=== PATIENT | female | born 1945 | race Caucasian/White ===

== ENCOUNTER 2022-01-27 14:48 | Emergency (ER) | payer OTHER ==
--- OUTSIDE RECORDS SUMMARY | 2022-01-27 14:54 | XMS REPORT | Continuity of Care Document ---
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 23:59:59 02 2020-07-25 2020-07-27 Outside nullFlavo MNA [id number] Memoria 13:18:30 04:59:59 Medical r Neurology 01 l Records Marta Escamilla 2020-07-25 2020-07-26 Outpatient MHMISCHER MHMISCHER [id number] 08:18:30 23:59:59 2020-07-20 2020-07-22 Outside nullFlavo MNA [id number] Memoria 14:14:15 04:59:59 Medical r Neurology 00 l Records Marta Escamilla 2020-07-20 2020-07-21 Outpatient MHMISCHER MHMISCHER [id number] 09:14:15 23:59:59 00 2020-07-17 2020-07-18 Outpatient nullFlavo MNA [id number] Memoria 15:30:00 04:59:59 r Neurology 08 l Marta Escamilla 2020-07-17 2020-07-17 Outpatient JERE DupreeMISCHER MHMISCHER [id number] 10:30:00 23:59:59 Salazar 08 Nba 2020-07-17 2020-07-17 Outpatient MHIE MHIE [id number] Memoria 10:30:00 10:30:00 08 alicia [place] 2020-02-17 2020-02-18 Outpatient nullFlavo MNA [id number] Memoria 18:00:00 04:59:59 r Neurology 06 l [place] 2020-02-17 2020-02-17 Outpatient JERE DupreeMISCHER MHMISCHER [id number] 13:00:00 23:59:59 Salazar 06 Nba 2020-02-17 2020-02-17 Outpatient MHIE MHIE [id number] Memoria 13:00:00 13:00:00 06 alicia [place] 2019-10-20 2019-10-21 Outpatient nullFlavo MNA [id number] Memoria 15:15:00 04:59:59 r Neurology 05 alicia [place] 2019-10-20 2019-10-20 Outpatient JERE DupreeMISCHER MHMISCHER [id number] 10:15:00 23:59:59 Salazar 05 Nba 2019-10-20 2019-10-20 Outpatient MHIE MHIE [id number] Memoria 10:15:00 10:15:00 05 alicia Escamilla 2019-06-30 2019-07-01 Outpatient nullFlavo MNA [id number] Memoria 15:00:00 05:59:59 r Neurology 04 alicia [place] [facility] [place] 2019-06-30 2019-06-30 Outpatient Leia MHMISCHER MHMISCHER [id number] 09:00:00 23:59:59 Salazar 04 Nba 2019-06-30 2019-06-30 Outpatient MHIE MHIE [id number] Memoria 09:00:00 09:00:00 04 alicia [place] 2019-04-14 2019-04-14 Outpatient MHIE MHIE [id number] Memoria 11:00:00 11:00:00 02 alicia [place] 2019-03-31 2019-04-01 Outpatient nullFlavo MNA [id number] Memoria 14:30:00 05:59:59 r Neurology 03 alicia [place] 2019-03-31 2019-03-31 Outpatient Leia MHMISCHER MHMISCHER [id number] 08:30:00 23:59:59 Salazar 03 Nba 2019-03-31 2019-03-31 Outpatient MHIE MHIE [id number] Memoria 08:30:00 08:30:00 03 alicia [place] 2019-03-30 2019-03-30 Ambulatory nullFlavo MNA [id number] Memoria 19:00:00 19:00:00 Pre-Reg r Neurology 02 alicia [place] 2019-03-30 2019-03-30 Outpatient Leia, MHMISCHER MHMISCHER [id number] 13:00:00 13:00:00 Salazar 02 Nba 2018-12-30 2018-12-31 Outpatient nullFlavo MNA [id number] Memoria 15:00:00 04:59:59 r Neurology 01 alicia [place] 2018-12-30 2018-12-30 Outpatient Leia MHMISCHER MHMISCHER [id number] 10:00:00 23:59:59 Salazar 01 Nba 2018-12-30 2018-12-30 Outpatient MHIE MHIE [id number] Memoria 10:00:00 10:00:00 01 alicia Escamilla 2018-11-16 2018-11-17 Outpatient nullFlavo MNA [id number] Memoria 20:45:00 04:59:59 r Neurology 00 l Marta Escamilla 2018-11-16 2018-11-16 Outpatient MARK Dupree [id number] 15:45:00 23:59:59 Salazar 00 Nba 2018-11-16 2018-11-16 Outpatient CANDIDA TIRADO [id number] Memoria 15:45:00 15:45:00 00 l Andi Results Test Description Test Time Test Comments Results Result Sourc e Comments [facility], 2019-02-06 Reason for FINAL REPORT PATIENT OMAIRA MANN, 10:27:00 exam:->precordi ID: [id number] SPECT al pain PROCEDURE:Rest/Stres s MYOCARDIAL PERFUSION SCAN with Lexiscan CPT CODE:59693 CLINICAL INDICATION: chest pain PROTOCOL: 10.3 mCi of Tc-99m sestamibi was injected intravenously at rest and 30 mCi of Tc-99m sestamibi was injected after administration of Lexiscan. Other stress and monitoring data are reported separately. Tomographic (SPECT) images were obtained after resting injection. Gated SPECT images were obtained after stress injection. FINDINGS: Images obtained after resting and stress injections of tracer show physiological tracer distribution in the LV myocardium. Gated images obtained at rest after stress injection show normal LV wall motion and thickening. QGS LVEF is 58 %. IMPRESSION: 1. Normal Lexiscan Cardiolite stress test. 2. Normal wall motion with LVEF of 58 %. Signed: Neida Long Verified Date/Time: 02/06/2019 10:27:56 Reading Location: [facility] Cardiology Reading Room -GLUCOSE METER 2019-02-06 05:55:00 Test Item Value Reference Range Interpretation Comme nts POC-GLUCOSE METER (BEAKER) (test 173 mg/dL 70-110 H TESTED AT [facility] [address] code = 1538) [place] [address] POCT-GLUCOSE [id number] 20:27:00 Test Item Value Reference Range Interpretation Comments POC-GLUCOSE METER 234 mg/dL 70-110 H TESTED AT [facility] [address] ([facility]) (test code [facility] = 1538) [place] [address] POCT-GLUCOSE [id number] 17:11:00 Test Item Value Reference Range Interpretation Comments POC-GLUCOSE METER 212 mg/dL 70-110 H TESTED AT [facility] [address] ([facility]) (test code [facility] = 1538) [place] [address] TSH/FREE T4 IF [id number] 13:03:00 Test Item Value Reference Range Interpretation Comments THYROID STIMULATING HORMONE 1.12 uIU/mL 0.35-5.50 ([facility]) (test code = 772) B-TYPE NATRIURETIC FACTOR (BNP)2019-02-05 12:55:00 Test Item Value Reference Range Interpretation Comments B-TYPE NATRIURETIC PEPTIDE ([facility]) 13 pg/mL 0-100 (test code = 700) TROPONIN [id number] 12:49:00 Test Item Value Reference Range Interpretation Comments TROPONIN I ([facility]) (test code = 0.01 ng/mL 0.00-0.15 397) Troponin I (TnI) levels must be interpreted in the context of the presenting symptoms and the clinical findings. Elevated TnI levels indicate myocardial damage, but are not specific for ischemic heart disease. Elevated TnI levels are seen in patients with other cardiac conditions (including myocarditis and congestive heart failure), and slight TnI elevations occur in patients with other conditions, including sepsis, renal failure, acidosis, acute neurological disease, and persistent tachyarrhythmia.POCT-GLUCOSE [id number] 12:28:00 Test Item Value Reference Range Interpretation Comments POC-GLUCOSE METER 104 mg/dL 70-110 TESTED AT [facility] [address] [address] ([facility]) (test code [facility] = 1538) [place] [address] CT, BRAIN, WITHOUT [id number] 07:13:00Reason for exam:- >HYPERTENSIONWhat is the patient's sedation requirement?->No Sedation Addendum BeginsREPORT STATUS:A Addendum is made to correct the dictation error in impression point '1' which should read as follows:1. NO large territory infarction, hemorrhage, ormass. Signed: Merissa Grey Verified Date/Time: 02/05/2019 07:13:31 Addendum EndsFINAL REPORT EXAM: CT, BRAIN, WITHOUT CONTRAST CLINICAL INDICATION: Hypertension headache.TECHNIQUE: Helical CT images from skull base to vertex without IV contrast. This exam was performed according to our departmental dose- optimization program, which includes automated exposure control, adjustment of the mA and/or kV according to patient size and/or use of iterative reconstruction technique. COMPARISON: None. FINDINGS: Parenchyma: No large territory infarction. There is an age-indeterminate left caudate nucleus lacunar infarction, age indeterminate infarction of the left sharp radiata, and age- indeterminate hypoattenuation of the left brachium pontis. Remote infarction of the right hemipons. No hemorrhage. No mass or mass effect. Patchy areas of hypoattenuation are present in the cerebral white matter that are nonspecific but compatible with mild chronic microvascular ischemic changes. Extra-axial Collection: None Ventricular System: No hydrocephalus Dural Venous Sinuses: Normal Osseous Structures: Normal Included Orbits: Normal Paranasal Sinuses: Predominantly clear Tympanomastoid Cavities: Normal Other: Atherosclerotic intracranial calcifications are present. IMPRESSION: 1. Large territory infarction, hemorrhage, or mass. 2. Age-indeterminate left caudate and left sharp radiata lacunar infarctions. If there is persistent clinical concern for intracranial pathology, MR examination is recommended for further characterization. 3. Remote right hemipons infarction and mild chronic white matter ischemic changes. Signed: Merissa Grey [facility] Verified Date/Time: 02/05/2019 06:54:30 TROPONIN [id number] 06:32:00 Test Item Value Reference Range Interpretation Comments TROPONIN I (BEAKER) (test code = 0.02 ng/mL 0.00-0.15 397) Troponin I (TnI) levels must be interpreted in the context of the presenting symptoms and the clinical findings. Elevated TnI levels indicate myocardial damage, but are not specific for ischemic heart disease. Elevated TnI levels are seen in patients with other cardiac conditions (including myocarditis and congestive heart failure), and slight TnI elevations occur in patients with other conditions, including sepsis, renal failure, acidosis, acute neurological disease, and persistent tachyarrhythmia.BASIC METABOLIC [id number] 06:27:00 Test Item Value Reference Range Interpretation Comments SODIUM (BEAKER) (test 141 meq/L 135-148 code = 381) POTASSIUM (BEAKER) 3.7 meq/L 3.5-5.5 (test code = 379) CHLORIDE (BEAKER) 105 meq/L 98-106 (test code = 382) CO2 (BEAKER) (test 25 meq/L 20-31 code = 355) BLOOD UREA NITROGEN 18 mg/dL 10-26 (BEAKER) (test code = 354) CREATININE (BEAKER) 0.78 mg/dL 0.50-1.20 (test code = 358) GLUCOSE RANDOM 196 mg/dL 70-110 H (BEAKER) (test code = 652) CALCIUM (BEAKER) 9.7 mg/dL 8.5-10.5 (test code = 697) EGFR (BEAKER) (test INSUFFIC IENT CLINICAL code = 1092) DATA TO CALCULA TE ESTIMATED GFR. RAD, CHEST, 1 VIEW, NON [id number] 06:25:00Reason for exam:->cpShould this be performed at the bedside?->YesFINAL REPORT INDICATION: cp COMPARISON: None TECHNIQUE: Single frontal view of the chest. FINDINGS: Lungs and pleura: Clear lungs. No effusion.Heart and mediastinum: Normal heart size. Mild aortic arch calcifications.Osseous structures: No acute abnormality.Other: None. IMPRESSION: No acute intrathoracic abnormality. Signed: Merissa Grey MDReport Verified Date/Time: 02/05/2019 06:25:30 -[id number] 06:19:00 Test Item Value Reference Range Interpretation Comments D-DIMER QUANTITATIVE (BEAKER) 0.26 MG/L FEU <0.50 (test code = 671) Intended Use: The D-Dimer Assay can be used to aid in the diagnosis of Deep Vein Thrombosis (DVT) and Pulmonary Embolism Disease (PED).In patients with low pre- test probability, various studies concerning STA Liatest D-dimer test have reported that with a cutoff value of 0.50 MG/L FEU, the Negative Predictive Value (NPV) regarding the exclusion of thrombosis is within 95-100% range.CBC W/PLT COUNT & AUTO [id number] 06:08:00 Test Item Value Reference Range Interpretation Comments WHITE BLOOD CELL COUNT 10.8 K/ L 4.0-10.0 H (BEAKER) (test code = 775) RED BLOOD CELL COUNT 4.76 M/ L 4.00-5.00 (BEAKER) (test code = 761) HEMOGLOBIN (BEAKER) 15.6 GM/DL 12.0-15.5 H (test code = 410) HEMATOCRIT (BEAKER) 45.0 % 36.0-46.0 (test code = 411) MEAN CORPUSCULAR VOLUME 94.5 fL 82.0-99.0 (BEAKER) (test code = 753) MEAN CORPUSCULAR 32.8 pg 27.0-33.0 HEMOGLOBIN (BEAKER) (test code = 751) MEAN CORPUSCULAR 34.7 GM/DL 32.0-36.0 HEMOGLOBIN CONC (BEAKER) (test code = 752) RED CELL DISTRIBUTION 12.9 % 12.0-15.0 WIDTH (BEAKER) (test code = 412) PLATELET COUNT (BEAKER) 214 K/CU MM 150-430 (test code = 756) MEAN PLATELET VOLUME 9.5 fL 6.0-11.5 MPV-Kurtis roximately (BEAKER) (test code = 20% po sitive bias 754) due to method change. NUCLEATED RED BLOOD 0 /100 WBC 0-0 CELLS (BEAKER) (test code = 413) NEUTROPHILS RELATIVE 73 % PERCENT (BEAKER) (test code = 429) LYMPHOCYTES RELATIVE 15 % PERCENT (BEAKER) (test code = 430) MONOCYTES RELATIVE 10 % PERCENT (BEAKER) (test code = 431) EOSINOPHILS RELATIVE 2 % PERCENT (BEAKER) (test code = 432) BASOPHILS RELATIVE 0 % PERCENT (BEAKER) (test code = 437) NEUTROPHILS ABSOLUTE 7.81 K/ L 1.80-8.00 COUNT (BEAKER) (test code = 670) LYMPHOCYTES ABSOLUTE 1.58 K/ L 1.48-4.50 COUNT (BEAKER) (test code = 414) MONOCYTES ABSOLUTE 1.02 K/ L 0.00-1.30 COUNT (BEAKER) (test code = 415) EOSINOPHILS ABSOLUTE 0.26 K/ L 0.00-0.50 COUNT (BEAKER) (test code = 416) BASOPHILS ABSOLUTE 0.04 K/ L 0.00-0.20 COUNT (BEAKER) (test code = 417) IMMATURE 0 % 0-0 GRANULOCYTES-RELATIVE PERCENT (CHRISAKER) (test code = 2801)
[2022-01-27 15:32] LABS: Absolute Lymphocytes (CBC) 1.4 K/uL (0.7-4.9); Hematocrit 43.4 % (36.0-45.0); MCV 96.3 fL (80-100); MPV 7.5 fL (7.6-11.3); RBC Red Blood Cell Count 4.51 M/uL (3.86-4.86)
[2022-01-27 15:52] LABS: Albumin 3.6 g/dL (3.4-5.0); Bilirubin Total 0.3 mg/dL (0.2-1.0); Potassium 3.5 mmol/L (3.5-5.1); Protein, Total 7.1 g/dL (6.4-8.2)
--- NOTE | 2022-01-27 15:57 | RAD REPORT ---
EXAM DESCRIPTION: CT - Head Brain Wo Cont - 01/27/2022 3:46 pm CLINICAL HISTORY: Headache, new or worsening COMPARISON: Head Brain Wo Cont dated 01/25/2022No comparisons TECHNIQUE: Axial 5 mm thick images of the head were obtained without IV contrast. All CT scans are performed using dose optimization technique as appropriate and may include automated exposure control or mA/KV adjustment according to patient size. FINDINGS: No intracranial hemorrhage, mass, edema or shift of mid-line structures. No acute infarcti on changes seen. No cortical edema or sulcal effacement. Mild atrophy changes are present in the cere bral hemispheres with more moderate cerebellum atrophy. Old infarction change seen in the right-sided jaleel. Chronic ischemic changes are present in the cerebral white matter and extending into the bilat eral basal ganglia. Ventricles are in proportion to volume loss. Dense arterial tree calcifications a re present. Mastoid air cells and visualized portions of the paranasal sinuses are clear. No acute bony findings. IMPRESSION: Negative non-contrast CT head examination for acute intracranial finding.
[2022-01-27] MEDS ORDERED: NA CHLORIDE 0.9% 1,000 ML ONE (15:59)
[2022-01-27] MEDS ORDERED: ACETAMINOPHEN 500 MG TAB ONE (15:59)
[2022-01-27] MEDS ORDERED: METOCLOPRAMIDE 10 MG/2mL INJ ONE (15:59)
--- NOTE | 2022-01-27 16:04 | EDPHYS ---
Physician Documentation [facility] Name: Ruthann Vega Age: 76 yrs Sex: Female : 1945 Arrival Date: 01/27/2022 Time: 14:50 Bed 2 Private MD: ED Physician Manish Wade HPI: 01/27 15:10 This 76 yrs old Female presents to ER via EMS with complaints of headache since 8-9a, jr11 worsening . 15:10 The patient complains of pain to the left side of head. The patient describes the jr11 headache as aching, pounding, throbbing, acute onset BECK, change in quality, h/o stroke. Onset: The symptoms/episode began/occurred 6 hrs. Associated signs and symptoms: Pertinent negatives: altered mental status, malaise, nausea, rash. Severity of symptoms: At its worst the pain was moderate, in the emergency department the pain is actually worse. No worsening L sided weakness. Historical: - Allergies: 14:52 Wheat/glutens; ll1 14:52 Codeine; ll1 - PMHx: 14:52 Transient cerebral ischemia; Diabetes mellitus; Hypertensive disorder; CVA-L side ll1 weakness; Hypercholesterolemia; - PSHx: 14:52 hysterectomy; ll1 - Immunization history:: Client reports receiving the 2nd dose of the Covid vaccine. - Social history:: Smoking status: Patient denies any tobacco usage or history of. ROS: 15:10 All other systems are negative. jr11 Exam: 15:10 Constitutional: This is a well developed, well nourished patient who is awake, alert, jr11 and in no acute distress. Head/Face: Normocephalic, atraumatic. Eyes: Extra-ocular motions intact. Lids and lashes normal. Conjunctiva and sclera are non-icteric and not injected. Cornea within normal limits. Periorbital areas with no swelling, redness, or edema. ENT: Nares patent. No nasal discharge, no septal abnormalities noted. Oropharynx with no redness, swelling, or masses, exudates, or evidence of obstruction, uvula midline. Mucous membranes moist. Neck: Trachea midline, no thyromegaly or masses palpated, and no cervical lymphadenopathy. Supple, full range of motion without nuchal rigidity, or vertebral point tenderness. No Meningismus. Chest/axilla: Normal chest wall appearance and motion. Nontender with no deformity. No lesions are appreciated. Cardiovascular: Regular rate and rhythm with a normal S1 and S2. No gallops, murmurs, or rubs. Normal PMI, no JVD. No pulse deficits. Respiratory: Lungs have equal breath sounds bilaterally, clear to auscultation and percussion. No rales, rhonchi or wheezes noted. No increased work of breathing, no retractions or nasal flaring. Abdomen/GI: Soft, non-tender, with normal bowel sounds. No distension or tympany. No guarding or rebound. No evidence of tenderness throughout. Back: No spinal tenderness. No costovertebral tenderness. Full range of motion. Skin: Warm, dry with normal turgor. Normal color with no rashes, no lesions, and no evidence of cellulitis. MS/ Extremity: Pulses equal, no cyanosis. Neurovascular intact. Full, normal range of motion. Neuro: Awake and alert, GCS 15, oriented to person, place, time, and situation. No gross motor or sensory deficits except L sided weakness LUE and LLE, chronic Vital Signs: 14:50 Weight 85.73 kg; Height 5 ft. 3 in. (160.02 cm); Pain 7/10; ll1 14:55 BP 159 / 76; Pulse 88; Resp 17; Temp 98.5; Pulse Ox 98% on R/A; ll1 16:00 BP 129 / 67; Pulse 91; Resp 16; Pulse Ox 96% ; Pain 2/10; db 16:37 Temp 97.9(TE); ph 14:50 Body Mass Index 33.48 (85.73 kg, 160.02 cm) ll1 Fiordaliza Coma Score: 15:10 Eye Response: spontaneous(4). Verbal Response: oriented(5). Motor Response: obeys jr11 commands(6). Total: 15. MDM: 15:07 Patient medically screened. jr11 15:10 Differential diagnosis: intracerebral hemorrhage, migraine, tension headache. Data jr11 reviewed: vital signs, nurses notes. ED course: Patient is a 76-year-old history of stroke, patient states she is never had headaches like this before, headache less than 6 hours, will rule out subarachnoid bleed with a CT. In the meantime treat symptomatically. Headache negative, will continue treated symptomatically. Denies any worsening weakness. 16:03 ED course: Pt feeling better, comfortable going home, ER warnings given . jr11 01/27 15:07 Order name: CBC with Diff jr11 01/27 15:07 Order name: CMP jr11 01/27 15:10 Order name: CT Head Brain wo Cont jr11 01/27 15:33 Order name: CBC with Automated Diff; Complete Time: 15:33 EDMS 01/27 15:52 Order name: Comprehensive Metabolic Panel; Complete Time: 15:59 EDMS 01/27 15:58 Order name: CT; Complete Time: 15:59 EDMS 01/27 15:07 Order name: IV Saline Lock; Complete Time: 15:24 jr11 01/27 15:07 Order name: Labs collected and sent; Complete Time: 15:24 jr Administered Medications: 16:08 Drug: NS 0.9% 1000 ml Route: IV; Rate: 1 bolus; Site: right antecubital; db 16:36 Follow up: Response: No adverse reaction; IV Status: Completed infusion; IV Intake: ph 500ml 16:08 Drug: Reglan (metoCLOPramide) 10 mg Route: IVP; Site: right antecubital; db 16:36 Follow up: Response: No adverse reaction ph 16:08 Drug: Tylenol 1000 mg Route: PO; db 16:36 Follow up: Response: No adverse reaction; Pain is decreased ph Disposition Summary: 01/27/22 16:04 Discharge Ordered Location: Home jr Condition: Stable jr11 Diagnosis - Headache jr11 Discharge Instructions: - Discharge Summary Sheet jr11 - General Headache Without Cause jr Forms: - Medication Reconciliation Form jr11 - Thank You Letter jr11 - Antibiotic Education jr11 - Prescription Opioid Use [facility] Signatures: Dispatcher [employer] Catrachita Lepe RN RN 1 Manish Wade MD MD jr11 Mandie Diaz RN RN Ivone Ashford RN ph
--- NOTE | 2022-01-27 16:04 | ER ---
Nurse's Notes [facility] Name: Ruthann Vega Age: 76 yrs Sex: Female : 1945 Arrival Date: 01/27/2022 Time: 14:50 Bed 2 Private MD: Diagnosis: Headache Presentation: 01/27 14:50 Chief complaint: Patient states: BECK since 0130 am today. EMS states: BP 170/80, HR ll1 90's, 93% RA, temp 98.4. Coronavirus screen: Vaccine status: Patient reports receiving the 2nd dose of the covid vaccine. Client denies travel out of the [place] in the last 14 days. headache. Ebola Screen: Patient denies travel to an Ebola-affected area in the 21 days before illness onset. Initial Sepsis Screen: Does the patient meet any 2 criteria? No. Patient's initial sepsis screen is negative. Does the patient have a suspected source of infection? No. Patient's initial sepsis screen is negative. Risk Assessment: Do you want to hurt yourself or someone else? Patient reports no desire to harm self or others. Onset of symptoms was January 27, 2022. 14:50 Method Of Arrival: EMS ll1 14:50 Acuity: GAB 3 ll1 Triage Assessment: 14:53 General: Appears uncomfortable, Behavior is cooperative, appropriate for age. Pain: ll1 Complains of pain in head Pain currently is 7 out of 10 on a pain scale. Quality of pain is described as aching. Neuro: Reports headache. Historical: - Allergies: 14:52 Wheat/glutens; ll1 14:52 Codeine; ll1 - PMHx: 14:52 Transient cerebral ischemia; Diabetes mellitus; Hypertensive disorder; CVA-L side ll1 weakness; Hypercholesterolemia; - PSHx: 14:52 hysterectomy; ll1 - Immunization history:: Client reports receiving the 2nd dose of the Covid vaccine. - Social history:: Smoking status: Patient denies any tobacco usage or history of. Screenin:54 Abuse screen: Denies threats or abuse. Nutritional screening: No deficits noted. ll1 Tuberculosis screening: No symptoms or risk factors identified. Fall Risk. Assessment: 15:15 General: Appears in no apparent distress. comfortable, Behavior is calm, cooperative, db appropriate for age, quiet. Pain: Complains of pain in left side of head Pain currently is 6 out of 10 on a pain scale. Pain began suddenly. Neuro: No deficits noted. Level of Consciousness is awake, alert, obeys commands, Oriented to person, place, time, Speech is normal, Facial symmetry appears normal, Pupils are PERRLA, Reports. Cardiovascular: No deficits noted. Respiratory: Reports. Respiratory: Airway is patent. GI: No deficits noted. : No signs and/or symptoms were reported regarding the genitourinary system. EENT: No deficits noted. Derm: No deficits noted. Musculoskeletal: No deficits noted. 16:05 Reassessment: Patient appears in no apparent distress at this time. No changes from db previously documented assessment. Patient and/or family updated on plan of care and expected duration. Pain level reassessed. Patient is alert, oriented x 3, equal unlabored respirations, skin warm/dry/pink. General: Appears in no apparent distress. comfortable, Behavior is calm, cooperative, appropriate for age, quiet. Pain: Pain currently is 2 out of 10 on a pain scale. 16:36 Reassessment: Patient appears in no apparent distress at this time. Patient and/or ph family updated on plan of care and expected duration. Pain level reassessed. Patient is alert, oriented x 3, equal unlabored respirations, skin warm/dry/pink. Patient states feeling better. Patient states symptoms have improved. Vital Signs: 14:50 Weight 85.73 kg; Height 5 ft. 3 in. (160.02 cm); Pain 7/10; ll1 14:55 BP 159 / 76; Pulse 88; Resp 17; Temp 98.5; Pulse Ox 98% on R/A; ll1 16:00 BP 129 / 67; Pulse 91; Resp 16; Pulse Ox 96% ; Pain 2/10; db 16:37 Temp 97.9(TE); ph 14:50 Body Mass Index 33.48 (85.73 kg, 160.02 cm) ll1 Fiordaliza Coma Score: 15:10 Eye Response: spontaneous(4). Verbal Response: oriented(5). Motor Response: obeys jr11 commands(6). Total: 15. ED Course: 14:50 Patient arrived in ED. as 14:50 Arm band placed on Patient placed in an exam room, on a stretcher. ll1 14:51 Manish Wade MD is Attending Physician. [facility] 14:52 Triage completed. ll1 15:08 Mandie Diaz, RN is Primary Nurse. db 15:15 Placed in gown. Bed in low position. Call light in reach. Side rails up X 1. Pulse ox db on. NIBP on. Warm blanket given. 15:15 Inserted saline lock: 22 gauge in right antecubital area, using aseptic technique. db 15:15 No provider procedures requiring assistance completed. db 16:37 IV discontinued, intact, bleeding controlled, No redness/swelling at site. Pressure ph dressing applied. Administered Medications: 16:08 Drug: NS 0.9% 1000 ml Route: IV; Rate: 1 bolus; Site: right antecubital; db 16:36 Follow up: Response: No adverse reaction; IV Status: Completed infusion; IV Intake: ph 500ml 16:08 Drug: Reglan (metoCLOPramide) 10 mg Route: IVP; Site: right antecubital; db 16:36 Follow up: Response: No adverse reaction ph 16:08 Drug: Tylenol 1000 mg Route: PO; db 16:36 Follow up: Response: No adverse reaction; Pain is decreased ph Medication: 15:15 VIS not applicable for this client. db Intake: 16:36 IV: 500ml; Total: 500ml. ph Outcome: 16:04 Discharge ordered by . [email or web address] 16:37 Discharged to home via wheelchair, with significant other. ph 16:37 Condition: good 16:37 Discharge instructions given to patient, Instructed on discharge instructions, follow up and referral plans. Demonstrated understanding of instructions, follow-up care. 16:38 Patient left the ED. ph Signatures: Betsy Pennington Patricia, RN RN ph Catrachita Lopez, PAM RN 1 Manish Wade MD MD [email or web address] Mandie Diaz, RN RN db
[2022-01-27 17:44] VITALS: BP 129/67; O2SAT 96
[2022-01-27 17:45] VITALS: TEMP 97.9
== END 2022-01-27 16:38 | disposition home or self-care (01) ==
LOC: ER 14:48
DX: R51.9 Headache, unspecified (principal); Z88.6 Allergy status to analgesic agent; I10 Essential (primary) hypertension; E11.9 Type 2 diabetes mellitus without complications; Z86.73 Personal history of transient ischemic attack (TIA), and cerebral infarction without residual deficits
CPT/HCPCS: 85025; 36415; 80053; 70450; 96374; 99284; J2765; J7030